=== PATIENT | female | born 1960 | race African-American/Black ===

== ENCOUNTER 2016-07-05 18:46 | Emergency (ER) | payer MEDICAID ==
[~2016-07-05] VITALS: Ht 144.8 cm; Wt 62.6 kg
[~2016-07-05 18:46] MED LIST: BACTRIM DS TAB1 EAC1 ORAL; DIFLUCAN100 MG ORAL; DULERA 100 MCG/13 GM INH; FLAGYL500 MG ORAL; INVOKANA100 MG PO; LIPITOR20 MG ORAL; NORCO 5-325 TA1 EACH ORAL; STARLIX60 MG ORAL
[2016-07-05 19:01] VITALS: BP 122/58
--- NOTE | 2016-07-05 19:19 | Emergency Room Report ---
History of Present Illness General Chief Complaint: Upper Respiratory Illness Source: Patient Present Illness HPI Patient has with complaints of shortness of breath and cough Patient states that she has a history of COPD She has been doing well for the past one year Denies any chest pain denies any back or flank pain Patient reports phlegm production with the cough Denies any pleurisy Denies any recent travel or fevers Allergies: Coded Allergies: ACETAMINOPHEN (Verified Allergy, Mild, 10/11/13) BLEEDING IBUPROFEN (Verified Allergy, Unknown, 10/11/13) BLEEDING Patient History Past Medical History: see triage record Pertinent Family History: none Now: No Reviewed Nursing Documentation: PMH: Agreed, PSxH: Agreed Nursing Documentation-PMH Past Medical History: No History, Except For Hx Hypertension: Yes Hx COPD: Yes Hx Diabetes: Yes Hx Neurological Problems: Yes - brain anuersym Review of Systems All Other Systems: negative except mentioned in HPI Physical Exam Vital Signs Date Time Temp Pulse Resp B/P Pulse Ox O2 Delivery O2 Flow Rate FiO2 07/05/16 18:52 97.9 84 16 122/58 100 Room Air Sp02 EP Interpretation: reviewed, normal General Appearance: well appearing, no apparent distress Head: normocephalic, atraumatic Eyes: bilateral eye EOMI, bilateral eye PERRL ENT: hearing grossly normal, normal pharynx, TMs + canals normal, uvula midline Neck: full range of motion, supple, no meningismus, no bony tend Respiratory: no respiratory distress, no retraction, no accessory muscle use, crackles - diffusely, wheezing - bilaterally Cardiovascular #1: normal peripheral pulses, regular rate, rhythm, no edema, no gallop, no JVD, no murmur Gastrointestinal: normal bowel sounds, non tender, soft, no mass, no organomegaly, non-distended, no guarding, no hernia, no pulsatile mass, no rebound Musculoskeletal: normal inspection Neurologic: oriented x3, responsive, toy mechanic III-XII nml as tested, motor strength/ tone normal, sensory intact Psychiatric: mood/affect normal Skin: normal color, no rash, warm/dry, palpation normal Lymphatic: normal inspection, no adenopathy Medical Decision Making Diagnostic Impression: Primary Impression: Upper respiratory infection ER Course Patient was provided with breathing treatments Imaging study is not showing any acute disease patient feel significantly improved at this time we'll have initial conservative outpatient trial Chest X-Ray Diagnostic Results EP Interpretation: Yes Findings: no consolidation, no effusion, no pneumothorax Number of Views: 1 Last Vital Signs Date Time Temp Pulse Resp B/P Pulse Ox O2 Delivery O2 Flow Rate FiO2 07/05/16 19:01 83 16 Room Air 07/05/16 19:01 97.9 122/58 100 Status: improved Disposition: HOME, SELF-CARE Condition: Improved Scripts Prednisone* (PREDNISONE*) 20 Mg Tablet 20 MG ORAL BID, #8 TAB Prov: HERO HUANG D.O. 07/05/16 Albuterol Sulfate* (ALBUTEROL SULFATE MDI*) 8.5 Gm Hfa.aer.ad 2 PUFF INH Q4H Y for cough/wheezing, #1 EA 0 Refills Prov: HERO HUANG D.O. 07/05/16 Additional Instructions: Patient is provided with the discharge instructions notified to follow up with primary doctor in the next 2-3 days otherwise return to the er with any worsening symptoms. Please note that this report is being documented using [employer] technology. This can lead to erroneous entry secondary to incorrect interpretation by the dictating instrument. HERO HUANG D.O. Jul 05, 2016 19:19
[2016-07-05] MEDS ORDERED: Ipratropium 0.02% Inh Soln 2.5ml UD HHN ONE (19:30)
[2016-07-05] MEDS ORDERED: Albuterol ud Inhalation HHN ONE (19:30)
[2016-07-05] MEDS ORDERED: PredniSONE 20mg tab ORAL ONE (19:30)
[2016-07-05] MEDS ORDERED: ALBUTEROL SULF8.5 GM INH (19:50)
[2016-07-05] MEDS ORDERED: AZITHROMYCIN250 MG ORAL (19:50)
[2016-07-05] MEDS ORDERED: PREDNISONE20 MG ORAL (19:50)
[2016-07-05 20:30] VITALS: BP 122/58
--- NOTE | 2016-07-06 11:16 | Diagnostic Imaging Report ---
Indication: SOB Technique: One view of the chest Comparison: none Findings: Projection is somewhat lordotic. Lungs and pleural spaces are clear. Heart size is normal Impression: No acute process This agrees with the preliminary interpretation provided by the emergency room physician
== END 2016-07-05 20:31 | disposition home or self-care (01) ==
LOC: EMR 19:35
DX: J06.9 Acute upper respiratory infection, unspecified (principal); J44.9 Chronic obstructive pulmonary disease, unspecified; I10 Essential (primary) hypertension; E11.9 Type 2 diabetes mellitus without complications; Z88.6 Allergy status to analgesic agent; Z86.79 Personal history of other diseases of the circulatory system
CPT/HCPCS: 71010; 82962; 94640; 94664; 99284

== ENCOUNTER 2016-07-08 14:59 | Emergency (ER) | payer MEDICAID ==
[~2016-07-08] VITALS: Ht 144.8 cm; Wt 59.0 kg
[~2016-07-08 14:59] MED LIST changes: +ALBUTEROL SULF8.5 GM INH; +AZITHROMYCIN250 MG ORAL; +PREDNISONE20 MG ORAL
[2016-07-08 17:44] VITALS: BP 94/61
[2016-07-08 18:00] LABS: BASOPHILS % (AUTO) 0.7 % (0.0-2.0); LYMPHOCYTES % (AUTO) 13.6 % (20.0-45.0); MEAN CORPUSCULAR HEMOGLOBIN 29.7 PG (27.0-31.0); MEAN CORPUSCULAR HGB CONC 33.3 G/DL (32.0-36.0); MEAN CORPUSCULAR VOLUME 89 FL (80-99); MEAN PLATELET VOLUME 7.5 FL (6.5-10.1); MONOCYTES % (AUTO) 3.8 % (1.0-10.0); NEUTROPHILS % (AUTO) 81.9 % (45.0-75.0); PLATELET COUNT 360 K/UL (150-450); RED BLOOD COUNT 4.99 M/UL (4.20-5.40); RED CELL DISTRIBUTION WIDTH 12.8 % (11.6-14.8); WHITE BLOOD COUNT 14.6 K/UL (4.8-10.8)
[2016-07-08 18:17] LABS: ANION GAP 18 (5-15); CARBON DIOXIDE 25 mEQ/L (20-30); CHLORIDE 96 mEQ/L (98-107); CREATININE 0.8 mg/dL (0.5-0.9); GLOMERULAR FILTRATION RATE > 60 mL/min (>60); HEMOLYSIS 4; POTASSIUM 3.9 mEQ/L (3.4-4.9); SODIUM 139 mEQ/L (135-145)
[2016-07-08] MEDS ORDERED: ZOFRAN ODT4 MG ORAL (18:55)
[2016-07-08] MEDS ORDERED: ANUSOL-HC30 GM RC (19:10)
[2016-07-08 19:58] VITALS: BP 99/64
--- NOTE | 2016-07-10 01:13 | Emergency Room Report ---
History of Present Illness General Chief Complaint: Nausea, Vomiting, and Diarrhea Source: Patient Present Illness HPI Patient present with complaints of diarrhea She reports that she is also seeing dark stool over the past one to 2 months Patient was apparently set up for a colonoscopy by her primary physician out of the procedure was canceled last minute for unknown reason Patient denies any vomiting denies any back or flank pain she does report some abdominal discomfort as well with a diarrhea 2/10 sharp pain Denies any recent travel Denies any trauma Allergies: Coded Allergies: ACETAMINOPHEN (Verified Allergy, Mild, 10/11/13) BLEEDING IBUPROFEN (Verified Allergy, Unknown, 10/11/13) BLEEDING Patient History Past Medical History: see triage record Pertinent Family History: none Reviewed Nursing Documentation: PMH: Agreed, PSxH: Agreed Nursing Documentation-PMH Past Medical History: No History, Except For Hx Hypertension: Yes Hx COPD: Yes Hx Diabetes: Yes Hx Neurological Problems: Yes - brain anuersym Review of Systems All Other Systems: negative except mentioned in HPI Physical Exam Vital Signs Date Time Temp Pulse Resp B/P Pulse Ox O2 Delivery O2 Flow Rate FiO2 07/08/16 15:23 98.1 73 18 91/58 93 Room Air Sp02 EP Interpretation: reviewed, normal General Appearance: well appearing, no apparent distress Head: normocephalic, atraumatic Eyes: bilateral eye EOMI, bilateral eye PERRL ENT: hearing grossly normal, normal pharynx, TMs + canals normal, uvula midline Neck: full range of motion, supple, no meningismus, no bony tend Respiratory: lungs clear, normal breath sounds, no rhonchi, no respiratory distress, no retraction, no accessory muscle use Cardiovascular #1: normal peripheral pulses, regular rate, rhythm, no edema, no gallop, no JVD, no murmur Gastrointestinal: normal bowel sounds, non tender, soft, no mass, no organomegaly, non-distended, no guarding, no hernia, no pulsatile mass, no rebound Genitourinary: no CVA tenderness Musculoskeletal: normal inspection Neurologic: oriented x3, responsive, structural steel painter III-XII 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 as tested, motor strength/ tone normal, sensory intact Psychiatric: mood/affect normal Skin: normal color, no rash, warm/dry, palpation normal Lymphatic: normal inspection, no adenopathy Medical Decision Making Diagnostic Impression: Primary Impression: Nausea, vomiting, and diarrhea ER Course Multiple differentials are considered Given the chronicity of the presentation blood work was obtained to evaluate hemoglobin Patient's hemoglobin count is appropriate Patient was here recently and I saw the patient regarding COPD/asthma patient has been on steroids which could potentially account for the mildly high white blood for count Patient remained hemodynamically stable At this time does not meet any criteria for further inpatient care Labs Test 07/08/16 17:20 White Blood Count 14.6 K/UL (4.8-10.8) Red Blood Count 4.99 M/UL (4.20-5.40) Hemoglobin 14.9 G/DL (12.0-16.0) Hematocrit 44.7 % (37.0-47.0) Mean Corpuscular Volume 89 FL (80-99) Mean Corpuscular Hemoglobin 29.7 PG (27.0-31.0) Mean Corpuscular Hemoglobin Concent 33.3 G/DL (32.0-36.0) Red Cell Distribution Width 12.8 % (11.6-14.8) Platelet Count 360 K/UL (150-450) Mean Platelet Volume 7.5 FL (6.5-10.1) Neutrophils (%) (Auto) 81.9 % (45.0-75.0) Lymphocytes (%) (Auto) 13.6 % (20.0-45.0) Monocytes (%) (Auto) 3.8 % (1.0-10.0) Eosinophils (%) (Auto) 0.0 % (0.0-3.0) Basophils (%) (Auto) 0.7 % (0.0-2.0) Sodium Level 139 mEQ/L (135-145) Potassium Level 3.9 mEQ/L (3.4-4.9) Chloride Level 96 mEQ/L (98-107) Carbon Dioxide Level 25 mEQ/L (20-30) Anion Gap 18 (5-15) Blood Urea Nitrogen 20 mg/dL (7-23) Creatinine 0.8 mg/dL (0.5-0.9) Estimat Glomerular Filtration Rate > 60 mL/min (>60) Glucose Level 275 mg/dL (74-106) Calcium Level 10.0 mg/dL (8.6-10.2) Last Vital Signs Date Time Temp Pulse Resp B/P Pulse Ox O2 Delivery O2 Flow Rate FiO2 07/08/16 19:58 97.9 79 18 99/64 96 Room Air Status: improved Disposition: HOME, SELF-CARE Condition: Improved Scripts Hydrocortisone Hc 2.5% Cream (ANUSOL-HC 2.5% CREAM) Y Cr 30 GM RC BID for 5 Days, GM Prov: HERO HUANG D.O. 07/08/16 Ondansetron Odt* (ZOFRAN ODT*) 4 Mg Tab.rapdis 4 MG ORAL Q6H Y for Nausea & Vomiting, #12 TAB 0 Refills Prov: HERO HUANG D.O. 07/08/16 Referrals: AMRIT TREVINO (PCP) Patient Instructions: Nausea and Vomiting, Adult, Diarrhea, Adult Additional Instructions: Patient is provided with the discharge instructions notified to follow up with primary doctor in the next 2-3 days otherwise return to the er with any worsening symptoms. Please note that this report is being documented using [employer] technology. This can lead to erroneous entry secondary to incorrect interpretation by the dictating instrument. HERO HUANG D.O. Jul 10, 2016 01:13
== END 2016-07-08 20:00 | disposition home or self-care (01) ==
LOC: EMR 15:50
DX: R19.7 Diarrhea, unspecified (principal); R11.2 Nausea with vomiting, unspecified; J44.9 Chronic obstructive pulmonary disease, unspecified; E11.9 Type 2 diabetes mellitus without complications; Z86.79 Personal history of other diseases of the circulatory system
CPT/HCPCS: 36415; 80048; 85025; 99284

== ENCOUNTER 2020-01-29 20:57 | Emergency (ER) | payer MEDICAID, OTHER ==
[~2020-01-29] VITALS: Ht 147.3 cm; Wt 63.5 kg
[~2020-01-29 20:57] MED LIST changes: +ANUSOL-HC30 GM RC; +ZOFRAN ODT4 MG ORAL
--- NOTE | 2020-01-29 21:25 | NUR ---
ED Nurse Note: Recieved pt from home, here with c/o rash with itching to vaginal area x 8 days after starting new medication, pt states is painful at 5/10 with pus like discharge, pt denies fevers or any other complaints or discomforts. No CP or SOB either, pt is ambulatory.
--- NOTE | 2020-01-29 21:27 | Emergency Room Report ---
History of Present Illness General Chief Complaint: Skin Rash/Abscess Present Illness HPI 59-year-old female with history of type 2 diabetes currently take medication here complaining 1 week of painful vaginal lesions in the inner vulva and the right-sided labia majora. Reports that she is sexually active with her denies any vaginal discharge. Reports that the area was first very dry and itchy and she has noticed some bumps in the area. Denies any bleeding. Patient is status post menopause. Denies any diffuse abdominal pain, nausea vomiting di arrhea. Has not taken medication for symptom relief. Has an upcoming appointment with [facility]. Denies any trauma to the area. 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: No Patient History Past Medical History: see triage record Past Surgical History: none Pertinent Family History: none Now: No Immunizations: UTD Reviewed Nursing Documentation: PMH: Agreed; PSxH: Agreed Nursing Documentation-PMH Hx Hypertension: Yes Hx COPD: Yes Hx Diabetes: Yes Hx Neurological Problems: Yes - brain anuersym Review of Systems All Other Systems: negative except mentioned in HPI Physical Exam Vital Signs Date Time Temp Pulse Resp B/P (MAP) Pulse Ox O2 Delivery O2 Flow Rate FiO2 01/29/20 21:08 98.4 85 16 110/60 (77) 97 Room Air Sp02 EP Interpretation: reviewed, normal General Appearance: no apparent distress, alert, GCS 15, non-toxic Head: normocephalic, atraumatic Eyes: bilateral eye normal inspection, bilateral eye PERRL ENT: hearing grossly normal, normal pharynx, no angioedema, normal voice Neck: full range of motion, supple/symm/no masses Respiratory: chest non-tender, lungs clear, normal breath sounds, speaking full sentences Cardiovascular #1: regular rate, rhythm, no edema Gastrointestinal: non tender, soft Rectal: deferred Genitourinary: no CVA tenderness, other - Possible lesions which appear not to be grouped and are diffuse noted in right-sided labia majora and minora with minimal swelling Musculoskeletal: back normal Psychiatric: judgement/insight normal Skin: normal color Lymphatic: no adenopathy Medical Decision Making PA Attestation All my diagnosis and treatment plans were reviewed ad discussed with my supervising physician Dr. Young Diagnostic Impression: Primary Impression: Cellulitis, pelvic Additional Impression: Vulvovaginal rash ER Course 59-year-old female with history of type 2 diabetes currently take medication here complaining 1 week of painful vaginal lesions in the inner vulva and the right-sided labia majora. Reports that she is sexually active with her denies any vaginal discharge. Reports that the area was first very dry and itchy and she has noticed some bumps in the area. Denies any bleeding. Patient is status post menopause. Denies any diffuse abdominal pain, nausea vomiting diarrhea. Has not taken medication for symptom relief. Has an upcoming appointment with [facility]. Denies any trauma to the area. Ddx considered but are not limited to: Vaginal rash, cellulitis vaginitis, yeast infection, BV, chlamydia, Gonorrhea, syphilis, HIV, herpes 1 or 2 Patient deferred treatment for potential sexually transmitted diseases such as chlamydia, gonorrhea, syphilis Vital signs: are WNL, pt. is afebrile H&PE are most consistent with : Vaginal rash most likely secondary to superimposed staphylococcal infection/herpes ORDERS: Keflex, acyclovir ED INTERVENTIONS: none DISCHARGE: At this time pt. is stable for d/c to home. Will provide printed patient care instructions, and any necessary prescriptions. Care plan and follow up instructions have been discussed with the patient prior to discharge. Advised patient to wear cotton underwear, take medication as directed, follow-up with [facility], % return to the emergency room. Due to low estrogen and dryness of th e area patient is high risk for superimposed infection also her diabetes status can contribute to this recurrences of infection. Advised her to return to emergency room if worsening symptoms. Last Vital Signs Date Time Temp Pulse Resp B/P (MAP) Pulse Ox O2 Delivery O2 Flow Rate FiO2 01/29/20 21:08 98.4 85 16 110/60 (77) 97 Room Air Disposition: HOME, SELF-CARE Condition: Stable Scripts Acyclovir* (ACYCLOVIR*) 400 Mg Tablet 400 MG ORAL TID for 7 Days, #21 TAB Prov: Aditi Blanton 01/29/20 Cephalexin* (KEFLEX*) 500 Mg Capsule 500 MG ORAL EVERY 6 HOURS for 7 Days, #28 CAP Prov: Aditi Blanton 01/29/20 Patient Instructions: Cellulitis, [id number], Vaginitis, [id number] Additional Instructions: Take medication as directed, follow-up with your [employer], if worsening symptoms return to the emergency room Aditi Blanton Jan 29, 2020 21:27
[2020-01-29] MEDS ORDERED: ACYCLOVIR400 MG ORAL (21:28)
[2020-01-29] MEDS ORDERED: CEPHALEXIN500 MG ORAL (21:28)
[2020-01-29 21:40] VITALS: BP 110/60
--- NOTE | 2020-01-29 21:40 | NUR ---
ER DISCHARGE NOTE: Patient is cleared to be discharged per ERMD, pt is aox4, on room air, with stable vital signs. pt was given dc and prescription instructions, pt was able to verbalize understanding, pt id band removed without complications. pt is able to ambulate with steady gait. pt took all belongings.
== END 2020-01-29 21:40 | disposition home or self-care (01) ==
LOC: EMR 21:35
DX: N73.2 Unspecified parametritis and pelvic cellulitis (principal); R21 Rash and other nonspecific skin eruption; J44.9 Chronic obstructive pulmonary disease, unspecified; E11.9 Type 2 diabetes mellitus without complications; Z88.6 Allergy status to analgesic agent
CPT/HCPCS: 99282